=== PATIENT | female | born 1960 | race Caucasian/White ===

== ENCOUNTER → 2017-06-18 | Outpatient (CLI) | payer BC ==
--- NOTE | 2017-06-18 13:56 | US ---
LOWER EXTREMITY VENOUS INSUFFICIENCY SIDE PERFORMED: Bilateral 1) Color flow is present and patency is documented in the following vessels. No DVT or SVT is noted . EIV Common Femoral Vein Deep Femoral Vein Femoral Vein Popliteal Vein Proximal Calf Veins Greater Saph Vein Upper Small Saph Vein 2) There is venous reflux noted at the following venous levels: Right: EIV, GSV, CFV, DFV, distal f em V, proximal mid and distal pop V and SSV. Left: EIV, GSV, DFV, proximal and distal fem V, proximal mid and distal pop V. IMPRESSION: 1. Multilevel venous reflux through the right and left lower extremity venous system.
== END | disposition home or self-care (01) ==
LOC: RADUSWWP 13:00
PROVIDERS: ATTEND Family Medicine
DX: I87.2 Venous insufficiency (chronic) (peripheral) (principal)
CPT/HCPCS: 93970

== ENCOUNTER → 2017-11-19 | Outpatient (CLI) | payer BC ==
--- NOTE | 2017-11-21 07:14 | MM ---
Reason for exam: screening (asymptomatic). Last mammogram was performed 1 year and 4 months ago. History: Patient is postmenopausal and is nulliparous. Family history of breast cancer in sister at age 35. Took hormonal contraceptives for 6 years. Physical Findings: A clinical breast exam by your physician is recommended on an annual basis and results should be correlated with mammographic findings. MG Screening Mammo w CAD Bilateral CC and MLO view(s) were taken. XCCL view(s) were taken of the right breast. Prior study comparison: July 10, 2016, bilateral MG 3d screening mammo w/cad. April 12, 2015, bilateral MG screening mammo w CAD. June 12, 2013, bilateral digital screening mammo w/CAD. May 17, 2012, CAD bilateral diagnostic mammogram. The breast tissue is heterogeneously dense. This may lower the sensitivity of mammography. No suspicious abnormality. No significant changes when compared with prior studies. ASSESSMENT: Negative, BI-RAD 1 RECOMMENDATION: Routine screening mammogram of both breasts in 1 year.
== END | disposition home or self-care (01) ==
LOC: RADMAMWWP 13:38
PROVIDERS: ATTEND Family Medicine
DX: Z12.31 Encounter for screening mammogram for malignant neoplasm of breast (principal)
CPT/HCPCS: 77067

== ENCOUNTER → 2018-11-25 | Outpatient (CLI) | payer BC ==
[2018-11-25 11:20] VITALS: BMI 32.5
== END | disposition home or self-care (01) ==
LOC: LABWHC1 10:33
PROVIDERS: ATTEND Family Medicine
DX: R73.09 Other abnormal glucose (principal)
CPT/HCPCS: 97802

== ENCOUNTER → 2019-11-19 | Outpatient (CLI) | payer BC ==
--- NOTE | 2019-11-19 20:16 | CONS ---
CONSULTATION DATE OF SERVICE: 11/19/2019 59-year-old lady who has been evaluated in the sleep center for possible obstructive sleep apnea-hypopnea syndrome. HISTORY OF PRESENT ILLNESS/SLEEP WAKE EVALUATION: Patient's usual sleep schedule on working days from around 10:00 pm until 5:30 a.m. and on weekends from 10 to 11 p.m. until around 5:30 a.m. SLEEP SCHEDULE: Sometimes, he has problems with falling asleep, has TV set, usually reads in bedroom. DURING SLEEP: She usually sleeps on the side position with her . According to him, she has loud snoring and witnessed episodes of stopped breathing during sleep. The patient wakes up from sleep 2 times with nocturia. DURING THE DAY/SLEEP WAKE EVALUATION: In the morning, patient wakes up tired. May feel sleepy during the day. [place] Sleepiness Scale is 7. PAST MEDICAL HISTORY: Positive for hypertension, hypothyroidism, left thyroid resection for nodule, acid reflux, sinuses problems. PAST SURGICAL HISTORY: Partial hysterectomy for fibroids, resection of thyroid. MEDICATION: Pantoprazole, levothyroxine, lisinopril, gingko biloba, D3, vitamin B complex. SOCIAL HISTORY: Negative for smoking. Alcohol consumption occasional. FAMILY HISTORY: Hypertension, heart problems, hyperlipidemia, arthritis, asthma, sinus problems, sleep apnea, headaches, cancer, acid reflux, diabetes, thyroid problems. REVIEW OF SYSTEMS: Awakenings from sleep, episodes of sleepiness during the day, tiredness during the day. PHYSICAL EXAM: lady without distress, BP 151/91, HR 80, RR 16, height 5 feet 5 inches, weight 197.2, body mass index 32.7, temperature 99, oxygen saturation at room air 99%. Oropharynx: Extremely low position of soft palate. Mallampati 4. Overbite with retrognathia about 2 mm. Neck 15 inch in circumference. Abdomen slightly diabetes. NECK: Supple, no JVD. Thyroid is not palpable. LUNGS: Clear to percussion and to auscultation. Good air exchange. No wheezing or rhonchi. HEART: S1, S2 regular. No murmurs, gallops, or rubs. ABDOMEN: Slightly obese. Soft and nontender. Bowel sounds are present. No organomegaly appreciated. EXTREMITIES: No clubbing or cyanosis. BENCH SCIENTIST: Awake, alert, and oriented X3. Cranial nerves 2 to 7 intact. There is no fasciculation or atrophy. noted. No focal deficits observed. IMPRESSION: 1. Loud snoring, witnessed episodes of stopped breathing during the sleep, extremely low position of soft palate, Mallampati IV, obstructive sleep apnea-hypopnea syndrome. 2. Hypertension. 3. Hypothyroidism status post thyroid resection for nodules. 4. Status post partial hysterectomy for fibroids. 5. Sinus problems. PLAN: 1. Polysomnography for evaluation of patient's breathing during sleep. 2. CPAP/BiPAP titration if sleep study confirms obstructive sleep apnea-hypopnea syndrome. 3. Preferable position during sleep on the side. 4. No driving if patient feels any sleepiness. 5. I will see patient for follow up visit to explain results of testing and following plan. Thank you very much for referring this patient for consultation. Sincerely, Johnnie Ramsey MD, PhD, FAASM Diplomat of [place] [place] [employer] Track Grinder of [employer] [facility] [place] MMODL / IJN: [id number] /
== END | disposition home or self-care (01) ==
LOC: SLEEP 16:24
PROVIDERS: ATTEND Internal Medicine
DX: R06.83 Snoring (principal); I10 Essential (primary) hypertension; E03.9 Hypothyroidism, unspecified; J32.9 Chronic sinusitis, unspecified; Z90.89 Acquired absence of other organs; Z90.711 Acquired absence of uterus with remaining cervical stump; Z79.899 Other long term (current) drug therapy
CPT/HCPCS: 99211

== ENCOUNTER → 2020-04-21 | Outpatient (CLI) | payer BC ==
--- NOTE | 2020-04-21 23:47 | SFUN ---
SLEEP CENTER FOLLOW UP NOTE DATE OF SERVICE: 04/21/2020. This patient is a 59-year-old lady who had been followed in the sleep center for treatment of obstructive sleep apnea-hypopnea syndrome. Recently, patient had a home sleep apnea test which showed apnea-hypopnea index 27.5. Subsequently, patient was started on treatment with CPAP. She is sleeping better with the machine. I checked her CPAP unit, range of the pressure 5 to 15, average pressure 11.6 cm of water. Usage is 26 out of 30 nights for more than 4 hours with average usage 5.7 hours per night. Leak 7 L/minute, which is normal range. Patient is using full-face mask. Apnea-hypopnea index only 1.4, which is absolutely normal. [place] Sleepiness Scale is 7. MEDICATIONS: Pantoprazole, levothyroxine, lisinopril, gingko-biloba, vitamin D3, vitamin B complex. PHYSICAL EXAMINATION: GENERAL: Patient in no distress. VITAL SIGNS: BP 118/86, HR 90, RR 16, height 5 feet 5 inches, weight 205, body mass index 34.1, temperature 99.4, oxygen saturation at room air 95%. HEENT: PERRLA, EOMI. Oropharynx extremely low position of soft palate. Mallampati 4. NECK: Supple, no JVD. Thyroid is not palpable. LUNGS: Clear to percussion and to auscultation. Good air exchange. No wheezing or rhonchi. HEART: S1, S2 regular. No murmurs, gallops, or rubs. ABDOMEN: Soft and nontender. Bowel sounds are present. No organomegaly appreciated. EXTREMITIES: No clubbing or cyanosis. SQL DATABASE ADMINISTRATOR: Awake, alert, and oriented X3. Cranial nerves 2 to 7 intact. There is no fasciculation or atrophy. noted. No focal deficits observed. IMPRESSION: 1. Obstructive sleep apnea-hypopnea syndrome. Patient demonstrated great compliance with treatment, benefitting from treatment. 2. Hypertension. 3. Hypothyroidism. 4. Status post partial hysterectomy. 5. Sinus problems. PLAN: 1. Patient will continue to use her PAP equipment every night for the whole night. 2. Watching and losing weight. 3. Sleep hygiene with regular time bed for 7-1/2-8 hours. 4. Precautions related to driving. No driving if feeling sleepiness. 5. I will maintain all necessary CPAP prescriptions including mask, tube, filters. 6. Prescription for different style full face mask. 7. Follow-up visit in 6 months or earlier if patient has any problems. 8. I spent with patient more than 25 minutes. Thank you very much for allowing me to participate in management of your patient. Sincerely, Johnnie Ramsey MD, PhD, FAASM Diplomat of [place] [employer] Medicine Staff Cytotechnologist of [facility] [place] MMODL / REBECCAN: [id number] /
== END | disposition home or self-care (01) ==
LOC: SLEEP 10:10
PROVIDERS: ATTEND Internal Medicine
DX: G47.33 Obstructive sleep apnea (adult) (pediatric) (principal); I10 Essential (primary) hypertension; E03.9 Hypothyroidism, unspecified; R93.7 Abnormal findings on diagnostic imaging of other parts of musculoskeletal system; Z90.711 Acquired absence of uterus with remaining cervical stump; Z99.89 Dependence on other enabling machines and devices; Z79.890 Hormone replacement therapy; Z79.899 Other long term (current) drug therapy

== ENCOUNTER → 2020-09-30 | Outpatient (CLI) | payer BC ==
--- NOTE | 2020-10-01 03:34 | SFUN ---
SLEEP CENTER FOLLOW UP NOTE DATE OF SERVICE: 09/30/2020 This 59-year-old lady has been followed in Sleep Center for treatment of obstructive sleep apnea-hypopnea syndrome. Patient successfully continuing to use her CPAP equipment every night, sleeps well, does not snore. [place] Sleepiness Scale is slightly increased to 10. I checked CPAP unit. It is in automatic regimen, range of the pressure 5-15, most of the time pressure is 12.1, usage 30 out of 30 nights and 20 out of 30 nights for more than 4 hours with average usage 4.7 hours per night. Leak is 19 L/minute. Apnea- hypopnea index is 1.4, which is totally perfect. MEDICATIONS: Levothyroxine 112 mcg once daily, pantoprazole 40 mg once daily, lisinopril 5 mg once daily. PHYSICAL EXAMINATION: GENERAL: Patient in no distress. VITAL SIGNS: BP 144/77, HR 90, RR 15, height 5 feet 5 inches, weight 202.1, temperature 98.4, oxygen saturation at room air 99%. HEENT: PERRLA, EOMI. Oropharynx low position of soft palate, Mallampati 4. NECK: Supple, no JVD. Thyroid is not palpable. LUNGS: Clear to percussion and to auscultation. Good air exchange. No wheezing or rhonchi. HEART: S1, S2 regular. No murmurs, gallops, or rubs. ABDOMEN: Soft and nontender. Bowel sounds are present. No organomegaly appreciated. EXTREMITIES: No clubbing or cyanosis. ICT SUPPORT AND TEST ENGINEERS: Awake, alert, and oriented X3. Cranial nerves 2 to 7 intact. There is no fasciculation or atrophy. noted. No focal deficits observed. IMPRESSION: 1. Obstructive sleep apnea-hypopnea syndrome. The patient continues to use her CPAP equipment with good compliance, normal respiration on CPAP, benefitting from treatment. 2. Hypertension. 3. Hypothyroidism. 4. Status post partial hysterectomy. 5. Sinus problems. PLAN: 1. Patient will continue to use PAP equipment every night for the whole night. 2. Sleep hygiene with regular time in bed for at least 7-1/2 to 8 hours. 3. Precautions related to driving. No driving if feeling sleepiness. 4. I will maintain all necessary prescription for PAP supplies including mask, tube, filters. 5. Watching weight. 6. No driving if feeling sleepiness. 7. Follow-up visit in 6 months or earlier if patient has any problems. Thank you very much for allowing me to participate in management of your patient. Sincerely, Johnnie Ramsey MD, PhD, FAASM Diplomat of [employer] Specialties [employer] Board of Internal Medicine Counter Top Maker of [facility] [place] MMODL / REBECCAN: [id number] /
== END | disposition home or self-care (01) ==
LOC: SLEEP 15:26
PROVIDERS: ATTEND Internal Medicine
DX: G47.33 Obstructive sleep apnea (adult) (pediatric) (principal); I10 Essential (primary) hypertension; E03.9 Hypothyroidism, unspecified; J34.9 Unspecified disorder of nose and nasal sinuses; Z90.710 Acquired absence of both cervix and uterus; Z99.89 Dependence on other enabling machines and devices

== ENCOUNTER → 2020-10-26 | Outpatient (CLI) | payer BC ==
--- NOTE | 2020-10-27 14:10 | MM ---
Reason for exam: screening (asymptomatic). Last mammogram was performed 2 years and 11 months ago. History: Patient is postmenopausal and is nulliparous. Family history of breast cancer in sister at age 35. Took hormonal contraceptives for 6 years. Physical Findings: A clinical breast exam by your physician is recommended on an annual basis and results should be correlated with mammographic findings. MG Screening Mammo w CAD Bilateral CC and MLO view(s) were taken. Prior study comparison: November 19, 2017, bilateral MG screening mammo w CAD. July 10, 2016, bilateral MG 3d screening mammo w/cad. The breast tissue is heterogeneously dense. This may lower the sensitivity of mammography. There is chronic nodularity in the right breast. No significant changes when compared with prior studies. ASSESSMENT: Benign, BI-RAD 2 RECOMMENDATION: Routine screening mammogram of both breasts in 1 year.
== END | disposition home or self-care (01) ==
LOC: RADMAMWWP 07:45
PROVIDERS: ATTEND Family Medicine
DX: Z12.31 Encounter for screening mammogram for malignant neoplasm of breast (principal)
CPT/HCPCS: 77067

== ENCOUNTER → 2021-04-13 | Outpatient (CLI) | payer BC ==
--- NOTE | 2021-04-13 21:32 | SFUN ---
SLEEP CENTER FOLLOW UP NOTE DATE OF SERVICE: 04/13/2021. 60-year-old lady has been followed in Sleep Center for treatment of obstructive sleep apnea-hypopnea syndrome. The patient continued to use her CPAP equipment every night for the whole night. No snoring with the machine. She is getting all her CPAP supplies in time. [place] Sleepiness Scale today is 5. I checked patient's CPAP unit. Range of the pressure 5-15 in automatic regimen. Average pressure 12.3 cm of water. Usage is 29 out of 30 nights. Average usage 4.4 hours per night. Leak is 26 L/minute which is slightly increased. Apnea-hypopnea index is 1.8, which is normal. MEDICATIONS: Levothyroxine 112 mcg once a day, lisinopril 5 mg once a day, pantoprazole 40 mg once a day. PHYSICAL EXAMINATION: GENERAL: Patient in no distress. VITAL SIGNS: BP 150/84, HR 67, RR 15, height 5 feet 5 inches, weight 204.8 pounds with body mass index 33.9, temperature 96.5, oxygen saturation at room air 99%. HEENT: PERRLA, EOMI. Oropharynx extremely low position of soft palate. Mallampati IV. NECK: Supple, no JVD. Thyroid is not palpable. LUNGS: Clear to percussion and to auscultation. Good air exchange. No wheezing or rhonchi. HEART: S1, S2 regular. No murmurs, gallops, or rubs. ABDOMEN: Slightly obese. Soft and nontender. Bowel sounds are present. No organomegaly appreciated. EXTREMITIES: No clubbing or cyanosis. TECHNICAL PROPOSAL WRITER: Awake, alert, and oriented X3. Cranial nerves 2 to 7 intact. There is no fasciculation or atrophy. noted. No focal deficits observed. IMPRESSION: 1. Obstructive sleep apnea-hypopnea syndrome. Patient demonstrated good compliance with treatment. Normal respiration on treatment. Borderline leak from the mask. 2. Hypertension. 3. Hypothyroidism. 4. Status post partial hysterectomy. 5. History of sinus problems. PLAN: 1. Patient will continue to use PAP equipment every night for the whole night. 2. Sleep hygiene with regular time in bed for at least 7-1/2 to 8 hours. 3. Precautions related to driving. No driving if feeling sleepiness. 4. I will maintain all necessary prescription for PAP supplies including mask, tube, filters. 5. Watching weight. 6. Follow-up visit in 6 months or earlier if patient has any problems. Johnnie Ramsey MD, PhD, FAASM Diplomat of [employer] [employer] Specialties [employer] Board of Internal Medicine Commercial Title Examiner of [facility] [place] MMODL / REBECCAN: [id number] /
== END ==
LOC: SLEEP 11:34
PROVIDERS: ATTEND Internal Medicine
DX: G47.33 Obstructive sleep apnea (adult) (pediatric) (principal); I10 Essential (primary) hypertension; E03.9 Hypothyroidism, unspecified; Z87.09 Personal history of other diseases of the respiratory system; Z90.711 Acquired absence of uterus with remaining cervical stump; Z99.89 Dependence on other enabling machines and devices; Z79.899 Other long term (current) drug therapy; Z91.011 Allergy to milk products

== ENCOUNTER → 2023-04-26 | Outpatient (CLI) | payer BC ==
--- NOTE | 2023-04-26 10:58 | P.PN ---
Subjective DATE: 04/26/2023 FOLLOW UP VISIT. Patient with obstructive sleep apnea hypopnea syndrome return to sleep center for follow-up visit. Information from previous visit have been reviewed. I did not see patient for 2 years. Patient is using PAP equipment most of the nights. The patient has some problems with the mask and pressure. [place] sleepiness scale is 7, which is normal. I checked information from PAP unit. PAP unit pressure 5-15, average 11.6 cm H2O. Usage is 63 % , average 3.5 hours per night. Leak is 10.6 l/m, which is in acceptable range. Apnea Hypopnea Index is 1.7, which is normal. MEDICATIONS:1. Levothyroxine 112 g once a day 2. Multivitamins During physical exam: GENERAL: A pleasant patient without any distress. VITAL SIGNS: BP 117/79, HR 73, RR 12 , weight 162, temperature 98.1, oxygen saturation at room air 99 % . HEENT: PERRLA, EOMI.low position of soft palate, Mallapati 4 . NECK: Supple. No JVD. LUNGS: Clear to percussion and to auscultation. Good air exchange. No wheezing or rhonchi. HEART: S1, S2 regular. ABDOMEN: Soft and nontender.[] EXTREMITIES: No clubbing or cyanosis. DOPE FIRER: Awake, alert, and oriented x3. No focal deficit. Impressions: 1. Obstructive sleep apnea-hypopnea syndrome. Patient demonstrated borderline compliance with treatment, benefiting from treatment. 2. Hypothyroidism. 3. History of hypertension. 4. Status post partial hysterectomy. 5. History of sinuses problems. Plan: 1. Continue using PAP equipment every night for the whole night. 2. To change air filter at least 1-2 times per month. 3. PAP unit should stay lower then position of the head. 4. Advised patient to remove all remaining water from humidifier canister daily and make it dry after each usage. Refill canister with fresh distilled water before each usage. 5. Sleep hygiene with regular time in bed for at least 8 hours. 6. Precautions related to driving. No driving if feel any sleepiness. 7. I will maintain prescription for PAP supplies including mask, tube, filters. We will consider to change to mask type. 8. Follow up visit in 6 months or earlier if patient has any problems. 9. Watching weight. Thank you very much for allowing me to participate in the management of your patient. Johnnie Ramsey MD, PhD, FAASM. Diplomat of [place] Board [employer] Medicine, Sleep Medicine Board by [place] [employer] Medicine Chief Bank Examiner of [facility] [place]
== END ==
LOC: 3 N SLEEP 10:20
PROVIDERS: ATTEND Internal Medicine
DX: G47.33 Obstructive sleep apnea (adult) (pediatric) (principal); E03.9 Hypothyroidism, unspecified; J32.9 Chronic sinusitis, unspecified; I10 Essential (primary) hypertension; Z79.890 Hormone replacement therapy; Z99.89 Dependence on other enabling machines and devices; Z98.890 Other specified postprocedural states; Z91.011 Allergy to milk products
CPT/HCPCS: 99212

== ENCOUNTER → 2023-07-04 | Outpatient (CLI) | payer BC ==
--- NOTE | 2023-07-05 19:18 | MM ---
Reason for Exam: Screening (asymptomatic). Last mammogram was performed 1 year(s) and 1 month(s) ago. Patient History: Menarche at age 11. Patient has no children. Hysterectomy at age 43. Postmenopausal. Patient used Hormonal Contraceptives for 6 years. Sister had breast cancer, age 45. Risk Values: Marlene 5 year model risk: 3.3%. NCI Lifetime model risk: 14.3%. Prior Study Comparison: 11/19/2017 Bilateral Screening Mammogram, [facility]. 10/26/2020 Bilateral Screening Mammogram, [facility] 06/21/2022 Bilateral MG 3D screening mammo w/cad, [facility]. Tissue Density: The breast tissue is extremely dense which could obscure a lesion on mammography. Findings: Analyzed By CAD. Pattern appears symmetrical and stable. No significant interval change is evident. Benign vascular calcification is noted bilaterally. No suspicious groups of microcalcifications, spiculated or lobular masses, architectural distortion or other secondary signs of malignancy are mammographically apparent. Overall Assessment: Benign, BI-RAD 2 Management: Screening Mammogram of both breasts in 1 year. A negative mammogram report should not preclude additional follow up of suspicious palpable abnormalities. Patient should continue monthly self breast exam. A clinical breast exam by your physician is recommended on an annual basis and results should be correlated with mammographic findings. Electronically signed and approved by: Pranav Ball D.O. Radiologis
== END | disposition home or self-care (01) ==
LOC: RADMAMWWP 15:04
PROVIDERS: ATTEND Family Medicine
DX: Z12.31 Encounter for screening mammogram for malignant neoplasm of breast (principal); Z78.0 Asymptomatic menopausal state; Z80.3 Family history of malignant neoplasm of breast
CPT/HCPCS: 77063; 77067

== ENCOUNTER → 2023-11-21 | Outpatient (CLI) | payer BC ==
--- NOTE | 2023-11-21 11:18 | P.PN ---
Subjective DATE: 11/21/2023 FOLLOW UP VISIT. Patient with obstructive sleep apnea hypopnea syndrome return to sleep center for follow-up visit. Information from previous visit have been reviewed. Patient is using PAP equipment every night for the whole night, getting PAP supplies in time. The patient does not have significant problems with PAP unit and humidification. [place] sleepiness scale is 4, which is normal. Patient is using full face mask, sometimes feels most comfortable with full face mask. I checked information from PAP unit. PAP unit pressure 5-13.6, average 11.8 cm H2O. Usage is 87 % for more then 4 hours, average 4.5 hours per night. Leak is 8.6 l/m, which is in acceptable range. Apnea Hypopnea Index is 0.7, which is normal. MEDICATIONS:1. Levothyroxine 112 g once a day During physical exam: GENERAL: A pleasant patient without any distress. VITAL SIGNS: BP 132/82, HR 87, RR 12 , weight 174.4, temperature 98.4, oxygen saturation at room air 98 % . HEENT: PERRLA, EOMI.low position of soft palate, Mallapati 4 . NECK: Supple. No JVD. LUNGS: Clear to percussion and to auscultation. Good air exchange. No wheezing or rhonchi. HEART: S1, S2 regular. ABDOMEN: Soft and nontender.[] EXTREMITIES: No clubbing or cyanosis. BREAKFAST MANAGER: Awake, alert, and oriented x3. No focal deficit. Impressions: 1. Obstructive sleep apnea-hypopnea syndrome. Patient demonstrated great compliance with treatment, benefiting from treatment. 2. Hypothyroidism. 3. History of hypertension in the past. 4. Status post partial hysterectomy. 5. History of sinuses problems. Plan: 1. Continue using PAP equipment every night for the whole night. Patient will try to use nasal pillow mask. 2. To change air filter at least 1-2 times per month. 3. PAP unit should stay lower then position of the head. 4. Advised patient to remove all remaining water from humidifier canister daily and make it dry after each usage. Refill canister with fresh distilled water before each usage. 5. Sleep hygiene with regular time in bed for at least 8 hours. 6. Precautions related to driving. No driving if feel any sleepiness. 7. I will maintain prescription for PAP supplies including mask, tube, filters. 8. Watching weight. 9. Follow up visit in 6 months or earlier if patient has any problems. Thank you very much for allowing me to participate in the management of your patient. Johnnie Ramsey MD, PhD, FAASM. Diplomat of [place] [employer], Sleep Medicine Board by [place] [employer] of Internal Medicine Manager Machine of [facility] [place] cc: Pranav Sandreson DO
== END ==
LOC: 3 N SLEEP 10:04
PROVIDERS: ATTEND Internal Medicine
DX: G47.33 Obstructive sleep apnea (adult) (pediatric) (principal); E03.9 Hypothyroidism, unspecified; I10 Essential (primary) hypertension; Z79.890 Hormone replacement therapy; Z90.711 Acquired absence of uterus with remaining cervical stump; Z99.89 Dependence on other enabling machines and devices; Z86.69 Personal history of other diseases of the nervous system and sense organs; Z91.011 Allergy to milk products
CPT/HCPCS: 99212

== ENCOUNTER → 2024-06-04 | Outpatient (CLI) | payer BC | LOC: 3 N SLEEP 10:20 | PROVIDERS: ATTEND Internal Medicine | CPT/HCPCS: 99212 ==

== ENCOUNTER → 2024-07-17 | Outpatient (CLI) | payer BC ==
--- NOTE | 2024-07-23 07:48 | MM ---
Reason for Exam: Screening (asymptomatic). Last screening mammogram was performed 12 month(s) ago. Patient History: Menarche at age 11. Patient has no children. Hysterectomy at age 43. Postmenopausal. Patient used Hormonal Contraceptives for 6 years. Sister had breast cancer, age 45. Risk Values: Marlene 5 year model risk: 3.4%. NCI Lifetime model risk: 13.9%. Prior Study Comparison: 10/26/2020 Bilateral Screening Mammogram, [facility]. 06/21/2022 Bilateral MG 3D screening mammo w/cad, [facility]. 07/04/2023 Bilateral MG 3D screening mammo w/cad, [facility]. Tissue Density: The breasts are extremely dense, which lowers the sensitivity of mammography. Findings: Analyzed By CAD. There is no suspicious group of microcalcifications or new suspicious mass in either breast. Stable benign-appearing chronic nodularity in lymph nodes. Benign calcifications. Overall Assessment: Benign, BI-RAD 2 Management: Screening Mammogram of both breasts in 1 year. . Patient should continue monthly self-breast exams. A clinical breast exam by your physician is recommended on an annual basis. This exam should not preclude additional follow-up of suspicious palpable abnormalities. Note on Amrlene scores and lifetime risk: 1. A Marlene score greater than 3% is considered moderate risk. If this is the case, consider specialist referral to assess eligibility for a risk reducing agent. 2. If overall lifetime risk for the development of breast cancer is 20% or higher, the patient may qualify for future screening with alternating mammogram and breast MRI. [facility], , 07/23/2024 7:45 AM. Electronically signed and approved by: Davide Chavira M.D. Radiologis
== END | disposition home or self-care (01) ==
LOC: RADMAMWWP 15:25
PROVIDERS: ATTEND Family Medicine
CPT/HCPCS: 77063; 77067

== ENCOUNTER → 2025-02-18 | Outpatient (CLI) | payer BC ==
[2025-02-18 10:44] VITALS: BP 176/84; PULSE 84; RESP 16; TEMP 97.9
--- NOTE | 2025-02-18 12:31 | P.PROGSL ---
Subjective DATE: 02/18/2025 FOLLOW UP VISIT. Patient with obstructive sleep apnea hypopnea syndrome return to sleep center for follow-up visit. Information from previous visit have been reviewed. Patient is using PAP equipment every night for the whole night, getting PAP supplies in time. The patient does not have significant problems with the mask, PAP unit and humidification. Macfarlan sleepiness scale is 5, which is in normal range. I checked information from PAP unit. PAP unit pressure 5-10, average 8.7 cm H2O. Usage is 100% for more then 4 hours, average 5.7 hours per night. Leak is 5 l/m, which is in acceptable range. Apnea Hypopnea Index is 1.3, which is normal. MEDICATIONS: Levothyroxine, Nexium, turmeric, multivitamins. During physical exam: GENERAL: A pleasant patient without any distress. VITAL SIGNS: Please see below, weight is 189 lbs. HEENT: PERRLA, EOMI.low position of soft palate, Mallapati 3 . NECK: Supple. No JVD. LUNGS: Clear to percussion and to auscultation. Good air exchange. No wheezing or rhonchi. HEART: S1, S2 regular. ABDOMEN: Soft and nontender.[] EXTREMITIES: No clubbing or cyanosis. EKG MONITOR: Awake, alert, and oriented x3. No focal deficit. Impressions: 1. Obstructive sleep apnea-hypopnea syndrome. Patient demonstrated great compliance with treatment, benefiting from treatment. 2. Hypothyroidism, status post thyroid resection. 3. Mild obesity, BMI 32.4, patient increased weight on 8 pounds comparing with previous visit. 4. Status post partial hysterectomy. 5. Hypertension in the office. Plan: 1. Continue using PAP equipment every night for the whole night. 2. Sleep hygiene with regular time in bed for at least 7.5-8 hours 3. PAP unit should stay lower then position of the head. 4. Advised patient to remove all remaining water from humidifier canister daily and make it dry after each usage. Refill canister with fresh distilled water before each usage. 5. Watching weight. 6. Precautions related to driving. No driving if feel any sleepiness. 7. I will maintain prescription for PAP supplies including mask, tube, filters. 8. Follow up visit in 8 months or earlier if patient has any problems. Thank you very much for allowing me to participate in the management of your patient. Johnnie Stefadu, MD, PhD, FAASM. Diplomat of [place] [employer], Sleep Medicine Board by [place] [employer] [facility] [place] Objective - Vital Signs Vital Signs: Vital Signs Temp 97.9 F 02/18/25 10:44 Pulse 84 02/18/25 10:44 Resp 16 02/18/25 10:44 BP 176/84 02/18/25 10:44 Pulse Ox 98 02/18/25 10:44 FiO2 Intake & Output 02/17/25 02/18/25 02/18/25 18:59 06:59 18:59 Weight 85.729 kg
== END ==
LOC: 3 N SLEEP 10:36
PROVIDERS: ATTEND Internal Medicine
DX: G47.33 Obstructive sleep apnea (adult) (pediatric) (principal); E03.9 Hypothyroidism, unspecified; E66.9 Obesity, unspecified; I10 Essential (primary) hypertension; Z68.32 Body mass index [BMI] 32.0-32.9, adult; Z91.011 Allergy to milk products; Z99.89 Dependence on other enabling machines and devices; Z90.710 Acquired absence of both cervix and uterus; Z98.890 Other specified postprocedural states
CPT/HCPCS: 99212